=== PATIENT | female | born 1965 | race Native Hawaiian/Other Pacific Islander ===

== ENCOUNTER 2021-03-03 22:01 | Inpatient (IN) | payer OTHER ==
[~2021-03-03] VITALS: Ht 154.9 cm; Wt 60.0 kg
[2021-03-03 23:28] VITALS: BP 109/70; TEMP 99.1; Ht 154.9 cm; Wt 60.0 kg
[2021-03-04 17:28] LABS: PLATELET COUNT 116 K/uL (152-353)
[2021-03-04 17:42] LABS: POTASSIUM 4.1 mmol/L (3.6-5.2)
[2021-03-04 19:00] VITALS: BP 103/61
[2021-03-04 20:00] VITALS: BP 108/66; TEMP 98.9
[2021-03-04 21:00] VITALS: BP 106/64
[2021-03-04 22:00] VITALS: BP 104/61
[2021-03-04 23:00] VITALS: BP 105/63
[2021-03-05] VITALS (11 sets, daily range): BP systolic 99–118; BP diastolic 60–85; TEMP 98.9–99.6
[2021-03-05 05:43] LABS: PLATELET COUNT 131 K/uL (152-353)
[2021-03-05 05:55] LABS: POTASSIUM 3.5 mmol/L (3.6-5.2)
== END 2021-03-04 17:32 | disposition short-term general hospital (02) | DRG 189 ==
LOC: MED/SURG 22:01 → ICU 22:01 → MED/SURG 03-04 16:55
PROVIDERS: ADMIT Internal Medicine Endocrinology, Diabetes & Metabolism; ATTEND Internal Medicine Endocrinology, Diabetes & Metabolism
DX: J96.91 Respiratory failure, unspecified with hypoxia (principal); U07.1 COVID-19; J12.82 Pneumonia due to coronavirus disease 2019; J93.9 Pneumothorax, unspecified; E11.9 Type 2 diabetes mellitus without complications; E78.5 Hyperlipidemia, unspecified; I10 Essential (primary) hypertension; R53.81 Other malaise
CPT/HCPCS: 36415; 36600; 80048; 80053; 82805; 85027; 87635; 93005; 94660; 94760; J1650; U0003

== ENCOUNTER 2021-03-04 17:30 | Inpatient (IN) | payer OTHER ==
[~2021-03-04] VITALS: Ht 152.4 cm; Wt 60.6 kg
[2021-03-05] VITALS (13 sets, daily range): BP systolic 105–164; BP diastolic 61–83; TEMP 99.3–99.9
== END 2021-03-05 19:16 | disposition short-term general hospital (02) | DRG 189 ==
LOC: ICU 17:30
PROVIDERS: ADMIT Internal Medicine Endocrinology, Diabetes & Metabolism; ATTEND Internal Medicine Endocrinology, Diabetes & Metabolism
DX: J96.21 Acute and chronic respiratory failure with hypoxia (principal); U09.9 Post COVID-19 condition, unspecified; E11.9 Type 2 diabetes mellitus without complications; E78.49 Other hyperlipidemia; I10 Essential (primary) hypertension; R62.7 Adult failure to thrive
CPT/HCPCS: 36600; 81000; 82805; 87086; 87088